=== PATIENT | male | born 1990 | race Caucasian/White ===

== ENCOUNTER 2023-08-29 23:50 | Emergency (ER) | payer MEDICAID ==
[~2023-08-29] VITALS: Ht 160 cm; Wt 68.0 kg
[2023-08-29 23:56] VITALS: O2SAT 99
[2023-08-30] VITALS: BP 144/109; PULSE 110; RESP 22; TEMP 97.2; O2SAT 98
[2023-08-30] MEDS: HYDROcodone/APAP 10/325 MG 1 TAB TAB PO ONE (00:30)
[2023-08-30] MEDS: fentaNYL citrate 0.05 MG/ML VIAL IM ONE (01:03)
[2023-08-30] MEDS ORDERED: IBUP-2218 PO (01:50)
[2023-08-30] MEDS ORDERED: CYCL-711 PO (01:50)
[2023-08-30] MEDS ORDERED: HYDR-5191 PO (02:03)
[2023-08-30 02:21] VITALS: BP 147/69; PULSE 97; RESP 18; TEMP 98.1; O2SAT 98
== END 2023-08-30 02:21 | disposition home or self-care (01) ==
LOC: MED 23:50
DX: S42.022A Displaced fracture of shaft of left clavicle, initial encounter for closed fracture (principal); Z79.899 Other long term (current) drug therapy; W01.0XXA Fall on same level from slipping, tripping and stumbling without subsequent striking against object, initial encounter; Y93.66 Activity, soccer; Y92.322 Soccer field as the place of occurrence of the external cause; Y99.8 Other external cause status
CPT/HCPCS: 73000; 73030; 96372; 99284; J3010; Q0092